=== PATIENT | female | born 1950 | race Caucasian/White ===

== ENCOUNTER 2023-01-12 12:25 | Emergency (ER) | payer MEDICARE ==
[~2023-01-12] VITALS: Ht 160 cm; Wt 124.0 kg
[2023-01-12] MEDS ORDERED: NS IV 1000 ML 1,000 ML IV STA (12:50)
--- NOTE | 2023-01-12 13:01 | ED GI ---
General Chief Complaint: Abdominal/GI Problems Stated Complaint: DIARRHEA Source of Information: Patient History of Present Illness Date Seen by Provider: Jan 12, 2023 Time Seen by Provider: 12:30 Initial Comments 72-year-old female presenting with complaints of diarrhea since last Thursday. She thought initially she had stomach flu, and thought she was over it yesterday because she had no diarrhea throughout the day. However today she has had 3 episodes of diarrhea since getting up this morning. She denies having any blood in the diarrhea. She denies having abdominal pain or cramping. Had she felt like she was getting weak from having the constant diarrhea and not being able to eat and drink normally. She does have a history of high blood pressure as well as recently was diagnosed with blood clots in her lungs so she is on a blood thinner for that. She is scheduled to be seen tomorrow at [facility] for testing to evaluate what was going on with her blood clots in her lungs. However today after the 3 episodes of diarrhea she decided that she was likely dealing with a C. difficile infection and was sure that it would kill her if she did not get seen right away. Her primary provider she sees in the clinics was not available till the end of the week. She did not want to drive all the way to [place] where her other primary doctor is and did not want to go back up to [facility] since she is going there tomorrow. She denies having recent antibiotic use or exposure to ill contact with C. difficile that would have caused her to possibly contract an infection. Timing/Duration: 4-5 Days Modifying Factors: Worsens With Eating (diarrhea after eating) Associated Symptoms: No Back Pain, No Chest Pain, No Diaphoresis, No Fever/Chills; Fatigue; No Headache, No Heartburn, No Nausea/Vomiting, No Rash, No Shortness of Air, No Swelling/Mass in Abdomen, No Syncope; Weakness (feeling weak overall) Allergies and Home Medications Allergies Coded Allergies: levofloxacin (Verified Allergy, Severe, 01/12/23) Psychotic with fluoroquinolones Patient Home Medication List Home Medication List Reviewed: Yes Cephalexin (Cephalexin) 500 Mg Capsule, 500 MG PO BID Prescribed by: STEF ALMANZAR on 01/12/23 4483 Review of Systems Review of Systems Constitutional: see HPI EENTM: No Symptoms Reported Respiratory: No Symptoms Reported Cardiovascular: No Symptoms Reported Gastrointestinal: See HPI Genitourinary: No Symptoms Reported Musculoskeletal: no symptoms reported Skin: no symptoms reported Psychiatric/Neurological: Anxiety Past Rcxstry-Fbnyya-Umrpiy Hx Patient Social History Tobacco Use?: No Smoking Status: Never a Smoker Smokeless Tobacco Frequency: Never a User Use of E-Cig and/or Vaping Néstor: Never a User Substance use?: No Alcohol Use?: No Pt feels they are or have been: No Past Medical History Surgery/Hospitalization HX: Hypertension, Pulmonary emboli November 2022 Physical Exam Vital Signs Vital Signs - First Documented 01/12/23 01/12/23 12:30 14:33 Temp 36.7 Pulse 82 Resp 16 B/P (MAP) 181/75 (110) Pulse Ox 99 O2 Delivery Room Air Capillary Refill : Height/Weight/BMI Height: '" Weight: lbs. oz. kg; BMI Method: General Appearance: no apparent distress, obese Respiratory: chest non-tender, lungs clear, normal breath sounds Cardiovascular: normal peripheral pulses, regular rate, rhythm Gastrointestinal: normal bowel sounds, non tender, soft, no pulsatile mass Extremities: normal range of motion, normal capillary refill Neurologic/Psychiatric: alert, oriented x 3 Skin: normal color, warm/dry Progress/Results/Core Measures Results/Orders Lab Results Laboratory Tests Test 01/12/23 12:50 01/12/23 12:58 Range/Units Urine Color YELLOW Urine Clarity CLOUDY Urine pH 6.0 5-9 Urine Specific [place] 1.025 H 1.016-1.022 Urine Protein TRACE H NEGATIVE Urine Glucose (UA) NEGATIVE NEGATIVE Urine Ketones NEGATIVE NEGATIVE Urine Nitrite POSITIVE H NEGATIVE Urine Bilirubin NEGATIVE NEGATIVE Urine Urobilinogen 0.2 < = 1.0 MG/DL Urine Leukocyte Esterase TRACE H NEGATIVE Urine RBC (Auto) 1+ H NEGATIVE Urine RBC 0-2 /HPF Urine WBC 25-50 H /HPF Urine Squamous Epithelial Cells 25-50 H /HPF Urine Crystals NONE /LPF Urine Bacteria LARGE H /HPF Urine Casts NONE /LPF Urine Mucus MODERATE H /LPF Urine Culture Indicated YES White Blood Count 7.6 4.3-11.0 10^3/uL Red Blood Count 4.89 3.80-5.11 10^6/uL Hemoglobin 15.0 11.5-16.0 g/dL Hematocrit 46 35-52 % Mean Corpuscular Volume 93 80-99 fL Mean Corpuscular Hemoglobin 31 25-34 pg Mean Corpuscular Hemoglobin Concent 33 32-36 g/dL Red Cell Distribution Width 13.5 10.0-14.5 % Platelet Count 360 130-400 10^3/uL Mean Platelet Volume 9.0 9.0-12.2 fL Immature Granulocyte % (Auto) 0 % Neutrophils (%) (Auto) 60 42-75 % Lymphocytes (%) (Auto) 26 12-44 % Monocytes (%) (Auto) 11 0-12 % Eosinophils (%) (Auto) 2 0-10 % Basophils (%) (Auto) 0 0-10 % Neutrophils # (Auto) 4.6 1.8-7.8 10^3/uL Lymphocytes # (Auto) 2.0 1.0-4.0 10^3/uL Monocytes # (Auto) 0.8 0.0-1.0 10^3/uL Eosinophils # (Auto) 0.1 0.0-0.3 10^3/uL Basophils # (Auto) 0.0 0.0-0.1 10^3/uL Immature Granulocyte # (Auto) 0.0 0.0-0.1 10^3/uL Percent Immature Platelet Fraction 1.4 0.0-7.6 % Sodium Level 138 135-145 MMOL/L Potassium Level 4.0 3.6-5.0 MMOL/L Chloride Level 106 98-107 MMOL/L Carbon Dioxide Level 18 L 21-32 MMOL/L Anion Gap 14 5-14 MMOL/L Blood Urea Nitrogen 17 7-18 MG/DL Creatinine 0.80 0.60-1.30 MG/DL Estimat Glomerular Filtration Rate 77 BUN/Creatinine Ratio 21 Glucose Level 115 H 70-105 MG/DL Calcium Level 9.5 8.5-10.1 MG/DL Corrected Calcium 9.4 8.5-10.1 MG/DL Total Bilirubin 0.5 0.1-1.0 MG/DL Aspartate Amino Transf (AST/SGOT) 29 5-34 U/L Alanine Aminotransferase (ALT/SGPT) 40 0-55 U/L Alkaline Phosphatase 88 40-136 U/L Total Protein 7.3 6.4-8.2 GM/DL Albumin 4.1 3.2-4.5 GM/DL My Orders Orders - STEF ALMANZAR MD Stool Culture (01/12/23 12:50) Fecal Wbc (01/12/23 12:50) C Difficile Ag + Toxin A/B. (01/12/23 12:50) Comprehensive Metabolic Panel (01/12/23 12:50) Ua Culture If Indicated (01/12/23 12:50) Ed Iv/Invasive Line Start (01/12/23 12:50) Cbc With Automated Diff (01/12/23 12:50) Ns Iv 1000 Ml (Ns Iv 1000 Ml) (01/12/23 12:50) Urine Culture (01/12/23 12:50) Ceftriaxone Iv/Im (Ceftriaxone Iv/Im) (01/12/23 13:17) Vital Signs/I&O 01/12/23 01/12/23 12:30 14:33 Temp 36.7 36.5 Pulse 82 75 Resp 16 17 B/P (MAP) 181/75 (110) 139/89 Pulse Ox 99 O2 Delivery Room Air Room Air Progress Progress Note #1: Progress Note Differential diagnosis infectious diarrhea, dehydration, Colitis, C Diff infection, viral enteritis. Obtain stool specimen to check for infection. Urine to check hydration and look for infection. Establish peripheral IV access and send labs for Complete blood count, comprehensive metabolic profile, Lipase. Administer NS 1 Liter IV fluid bolus for hydration. Considered CT scan of abdomen/pelvis but patient denies pain and no bleeding with diarrhea as well as she is scheduled to have imaging tomorrow with contrast to look at existing blood clots in her lungs so decided that the imaging of the abd/pelvis was not indicated in addition to wanting to avoid increased stress on her kidneys with contrast load 2 days in a row. Progress Note #2: Time: 13:18 Progress Note Complete blood count did not show any acute abnormality. The urinalysis was concentrated with specific gravity of 1.025. It did show signs of infection with positive nitrites and leukocyte esterase as well as 25-50 white blood cells and large bacteria. Ordered dose of Rocephin 1 g IV to help start treatment for UTI. She is getting 1 L of normal saline already for hydration. Awaiting stool specimen for testing. Progress Note #3: Progress Note Patient was able to provide a stool specimen but it went mainly in the water so had to be scooped out to send for testing. Since the test is not back right away and is a send out will let patient go home and take antibiotic for UTI. Will call if the results show C. Diff to let her know and call in prescription if needed. Continue fluids and hydration. Consider taking a probiotic to try and help with diarrhea. If continued problems check with clinic for continued concerns Departure Impression Primary Impression: Diarrhea in adult patient Additional Impression: Acute cystitis without hematuria Disposition: HOME, SELF-CARE Condition: Stable Departure-Patient Inst. Decision time for Depature: 14:11 Referrals: EFRAIN NEAL DO (PCP/Family) Primary Care Physician Patient Instructions: Diarrhea, Adult ED, Probiotics, Urinary Tract Infection, Adult ED Add. Discharge Instructions: To test for C. diff it has to be sent to an outside lab. At the earliest it will be this evening or tomorrow before we get that result back. If it is positive we will call you to let you know so appropriate antibiotic for stool infection can be called in to pharmacy. Take the full course of antibiotics for the urine infection. Try to stay well hydrated and drink plenty of fluids and electrolyte drinks to help replace fluids and electrolytes lost with your diarrhea. Consider taking probiotics over the counter to help boost good bacteria in your gut. If the diarrhea persists you could check with [facility] or your primary care for additional testing as well. All discharge instructions reviewed with patient and/or family. Voiced understanding. Scripts Cephalexin (Cephalexin) 500 Mg Capsule 500 MG PO BID for UTI for 5 Days, #10 CAP 0 Refills Prov: STEF ALMANZAR MD 01/12/23 STEF ALMANZAR MD Jan 12, 2023 13:01
[2023-01-12 13:03] LABS: BILIRUBIN,URINE NEGATIVE (NEGATIVE); CLARITY,URINE CLOUDY; COLOR,URINE YELLOW; GLUCOSE, URINE (UA) NEGATIVE (NEGATIVE); KETONES,URINE NEGATIVE (NEGATIVE); LEUKOCYTE ESTERASE ,URINE TRACE (NEGATIVE); NITRITE,URINE POSITIVE (NEGATIVE); PROTEIN,URINE TRACE (NEGATIVE)
[2023-01-12 13:07] LABS: BASOPHILS % (AUTO) 0 % (0-10); EOSINOPHILS # (AUTO) 0.1 10^3/uL (0.0-0.3); EOSINOPHILS % (AUTO) 2 % (0-10); HEMATOCRIT 46 % (35-52); LYMPHOCYTES % (AUTO) 26 % (12-44); MEAN CORPUSCULAR HEMOGLOBIN 31 pg (25-34); MEAN CORPUSCULAR HGB CONC 33 g/dL (32-36); MEAN CORPUSCULAR VOLUME 93 fL (80-99); MONOCYTES # (AUTO) 0.8 10^3/uL (0.0-1.0); MONOCYTES % (AUTO) 11 % (0-12); NEUTROPHILS # (AUTO) 4.6 10^3/uL (1.8-7.8); NEUTROPHILS % (AUTO) 60 % (42-75); PLATELET COUNT 360 10^3/uL (130-400); WHITE BLOOD COUNT 7.6 10^3/uL (4.3-11.0)
[2023-01-12 13:13] LABS: BACTERIA,URINE LARGE /HPF; RBC,URINE 0-2 /HPF; SQUAMOUS EPITHELIAL CELL,UR 25-50 /HPF; WBC,URINE 25-50 /HPF
[2023-01-12] MEDS ORDERED: cefTRIAXone IV/IM 1,000 MG in NS (IVPB) 50 ML 50 ML IV STA (13:17)
[2023-01-12 13:25] LABS: ALBUMIN 4.1 GM/DL (3.2-4.5); BILIRUBIN,TOTAL 0.5 MG/DL (0.1-1.0); CALCIUM 9.5 MG/DL (8.5-10.1); CREATININE SERUM 0.8 MG/DL (0.60-1.30); TOTAL PROTEIN 7.3 GM/DL (6.4-8.2)
[2023-01-12] MEDS ORDERED: CEPH500C PO (14:09)
[2023-01-12 14:33] VITALS: BP 139/89
== END 2023-01-12 14:33 | disposition home or self-care (01) ==
LOC: EDUNIT# 12:25 → ER FS 12:27
DX: N30.00 Acute cystitis without hematuria (principal); E66.9 Obesity, unspecified; Z68.42 Body mass index [BMI] 45.0-49.9, adult
CPT/HCPCS: 36415; 80053; 81000; 85025; 87015; 87045; 87046; 87077; 87088; 87186; 87324; 87449; 87899